=== PATIENT | male | born 1945 | race Caucasian/White ===

== ENCOUNTER 2020-10-06 19:53 | Emergency (ER) | payer MEDICARE, OTHER ==
[~2020-10-06 19:53] MED LIST: ADULTS 50+ MUL1 EACH PO; DIAZEPAM 2MG TAB2 MG PO; LOPRESSOR25 MG PO; MAG-OXIDE 400M400 MG PO; NORVASC2.5 MG PO; PROSCAR5 MG PO; SAW PALMETTO450 MG PO; SYNTHROID25 MCG PO; VITAMIN B122500 MCG PO; WELLBUTRIN XL300 MG PO; ZOLOFT 25MG TAB25 MG PO
== END 2020-10-06 21:21 | disposition home or self-care (01) ==
LOC: FER 19:53
DX: R04.0 Epistaxis (principal); I10 Essential (primary) hypertension; Z88.0 Allergy status to penicillin; Z88.5 Allergy status to narcotic agent
CPT/HCPCS: 99283